=== PATIENT | male | born 1995 | race Two or more races ===

== ENCOUNTER 2018-05-17 11:55 | Emergency (ER) | payer SELFPAY ==
[~2018-05-17] VITALS: Ht 177.8 cm; Wt 79.4 kg
[2018-05-17 14:18] VITALS: BP 135/79
[2018-05-17 14:37] LABS: Urine Bacteria NONE SEEN /hpf (None Seen); Urine Blood TRACE /uL (Negative); Urine Mucus FEW (None Seen); Urine Specific Gravity 1.024 (1.001-1.035); Urine WBC <1 /hpf (0 - 3)
== END 2018-05-17 18:29 | disposition home or self-care (01) ==
LOC: ER 11:55
DX: J03.90 Acute tonsillitis, unspecified (principal); R31.9 Hematuria, unspecified
CPT/HCPCS: 81001